=== PATIENT | female | born 1985 ===

== ENCOUNTER 2023-09-24 18:27 | Inpatient (IN) | payer SELFPAY ==
[2023-09-24] MEDS ORDERED: Sodium Chloride 0.9% 10 ML Syringe FLUSH PRN (18:40)
[2023-09-24] MEDS ORDERED: Thiamine 100 MG in Sodium Chloride 0.9% 100 ML IV ONE (18:41)
[2023-09-24] MEDS ORDERED: Sodium Chloride 0.9% 1,000 ML IV ONE (18:41)
[2023-09-24 18:48] LABS: BASOPHILS PERCENT AUTO 0.3 % (0.0-1.0); EOSINOPHILS PERCENT AUTO 1.5 % (1.0-3.0); HEMATOCRIT 41.4 % (37.0-47.0); LYMPHOCYTES PERCENT AUTO 45.9 % (20.5-50.1); MEAN CORPUSCULAR HEMOGLOBIN 29.9 pg (27.0-34.0); MEAN CORPUSCULAR HGB CONC 33.8 g/dL (33.0-35.0); MEAN CORPUSCULAR VOLUME 88.5 fL (80-100); MONOCYTES PERCENT AUTO 6.6 % (2-8); NEUTROPHILS PERCENT AUTO 45.7 % (42.2-75.2); PLATELET COUNT,PLT 283 10^3/uL (150-450); RED BLOOD CELL COUNT 4.68 10^6/uL (4.2-5.4); WHITE BLOOD CELL COUNT,WBC 8.7 10^3/uL (5.0-10.0)
[2023-09-24 18:53] LABS: AMPHETAMINES,URINE NEGATIVE (NEGATIVE); APPEARANCE,URINE CLEAR (CLEAR); BARBITURATES,URINE NEGATIVE (NEGATIVE); BENZODIAZEPINE,URINE NEGATIVE (NEGATIVE); BILIRUBIN,URINE NEGATIVE (NEGATIVE); COLOR,URINE YELLOW (YELLOW); GLUCOSE,URINE NEGATIVE (NEGATIVE); KETONES,URINE NEGATIVE (NEGATIVE); LEUKOCYTE ESTERASE,URINE NEGATIVE (NEGATIVE); MDMA (ECSTASY), URINE NEGATIVE (NEGATIVE); METHADONE,URINE NEGATIVE (NEGATIVE); METHAMPHETAMINES,URINE NEGATIVE (NEGATIVE); NITRITE,URINE NEGATIVE (NEGATIVE); OCCULT BLOOD,URINE TRACE-INTACT (NEGATIVE); OPIATES,URINE NEGATIVE (NEGATIVE); OXYCODONE,URINE NEGATIVE (NEGATIVE); PH,URINE 5.5 (5.0-9.0); PHENCYCLIDINE,URINE NEGATIVE (NEGATIVE); PROTEIN,URINE 30 (NEGATIVE); TCA,URINE NEGATIVE (NEGATIVE); UROBILINOGEN,URINE 0.2 mg/dL (0.2-1.0)
[2023-09-24 19:02] LABS: BACTERIA,URINE MODERATE /HPF (0-FEW/HPF); EPITHELIAL CELLS,URINE MODERATE /HPF (NOT SEEN); MUCUS,URINE FEW /LPF (NOT SEEN); RBC,URINE 0-5 /HPF (0-5)
[2023-09-24 19:05] LABS: PTT,PARTIAL THROMBOPLSTIN TIME 26.8 SEC (22.0-34.0)
[2023-09-24 19:15] LABS: ALBUMIN 4.1 g/dL (3.4-5.0); ANION GAP 14.5 mEq/L (7-13); BILIRUBIN TOTAL 0.4 mg/dL (0.2-1.0); BUN/CREATININE RATIO 14.9 (No establ ref range); CALCIUM 8.3 mg/dL (8.5-10.1); CREATININE 0.67 mg/dL (0.55-1.02); EST CRCL DRUG DOSING (CG) 110.71 mL/min; MAGNESIUM 2.2 mg/dL (1.8-2.4); POTASSIUM,K 3.5 mmol/L (3.5-5.1); PROTEIN TOTAL,TP 8.2 g/dL (6.4-8.2); TSH ULTRASENSITIVE 1.86 uIU/mL (0.36-3.74)
[2023-09-24] MEDS ORDERED: LORazepam 2 MG/ML SDV IV PRN (20:00)
[2023-09-24] MEDS ORDERED: LORazepam 0.5 MG Tab PO PRN (20:00)
[2023-09-24] MEDS ORDERED: MVI, Adult with Vitamin K 10 ML, Folic Acid 1 MG, Thiamine 100 MG in Lactated Ringers 1... IV ONE ×4 (20:00)
[2023-09-24] MEDS ORDERED: Haloperidol Lactate 5 MG/ML SDV IM PRN (20:00)
[2023-09-24] MEDS ORDERED: hydrALAZINE 20 MG/ML SDV IVPUSH PRN (20:04)
[2023-09-24] MEDS ORDERED: Flumazenil 0.1 MG/ML 5 ML MDV IVPUSH PRN (20:11)
[2023-09-24] MEDS ORDERED: HYDROmorphone 0.5 MG/0.5 ML Syringe IVPUSH PRN (20:16)
[2023-09-24] MEDS ORDERED: Sennosides/Docusate Sodium 50-8.6 MG Tab PO PRN (20:16)
[2023-09-24] MEDS ORDERED: Ibuprofen 600 MG Tab PO PRN (20:16)
[2023-09-24] MEDS ORDERED: Ketorolac 30 MG/ML SDV IVPUSH PRN (20:16)
[2023-09-24] MEDS ORDERED: Magnesium Hydroxide 400 MG/5 ML Susp 30 ML Cup PO PRN (20:16)
[2023-09-24] MEDS ORDERED: Naloxone 2 MG/2 ML Syringe IVPUSH PRN (20:16)
[2023-09-24] MEDS ORDERED: Albuterol/Ipratropium 3.0-0.5 MG/3 ML Neb Soln NEB PRN (20:16)
[2023-09-24] MEDS ORDERED: Polyethylene Glycol 3350 Powder 17 GM Packet PO PRN (20:16)
[2023-09-24] MEDS ORDERED: Ondansetron 4 MG/2 ML SDV IVPUSH PRN (20:16)
[2023-09-24] MEDS ORDERED: traMADol 50 MG Tab PO PRN (20:19)
[2023-09-24 20:22] LABS: CORONAVIRUS COVID-19 NAA NEGATIVE (NEGATIVE); INFLUENZA A NAA NEGATIVE (NEGATIVE); INFLUENZA B NAA NEGATIVE (NEGATIVE); RESPIRATORY SYNCYTIAL VIR NAA NEGATIVE (NEGATIVE)
[2023-09-24] MEDS ORDERED: Famotidine 20 MG Tab PO SCH (21:00)
[2023-09-24] MEDS ORDERED: cloNIDine 0.1 MG Tab PO SCH (21:00)
[2023-09-25] MEDS ORDERED: Folic Acid 1 MG Tab PO SCH (21:00)
[2023-09-25] MEDS ORDERED: Multivitamin Tab PO SCH (21:00)
== END 2023-09-24 21:20 | disposition left against medical advice (07) | DRG 894 ==
LOC: DL.ED 18:27 → DL.MS 19:48
PROVIDERS: ADMIT Internal Medicine; ATTEND Internal Medicine
DX: F10.129 Alcohol abuse with intoxication, unspecified (principal); F23 Brief psychotic disorder; F32.9 Major depressive disorder, single episode, unspecified; F43.10 Post-traumatic stress disorder, unspecified; F41.1 Generalized anxiety disorder; Z88.0 Allergy status to penicillin; Z79.899 Other long term (current) drug therapy
CPT/HCPCS: 0241U; 36415; 80053; 80143; 80179; 80305-QW; 80307; 81001; 81025; 83735; 84443; 85025; 85610; 85730; 96365; 99284; 99284-25; J3411; J3490; J7030

== ENCOUNTER 2024-06-05 03:50 | Inpatient (IN) | payer MEDICAID ==
[2024-06-05 04:00] LABS: BASOPHILS PERCENT AUTO 0.2 % (0.0-1.0); EOSINOPHILS PERCENT AUTO 0.7 % (1.0-3.0); HEMATOCRIT 42.3 % (37.0-47.0); HEMOGLOBIN 14.2 g/dL (12.0-16.0); LYMPHOCYTES PERCENT AUTO 40.8 % (20.5-50.1); MEAN CORPUSCULAR HEMOGLOBIN 30.1 pg (27.0-34.0); MEAN CORPUSCULAR HGB CONC 33.6 g/dL (33.0-35.0); MEAN CORPUSCULAR VOLUME 89.6 fL (80-100); MONOCYTES PERCENT AUTO 6.2 % (2-8); NEUTROPHILS PERCENT AUTO 52.1 % (42.2-75.2); PLATELET COUNT,PLT 308 10^3/uL (150-450); RED BLOOD CELL COUNT 4.72 10^6/uL (4.2-5.4); WHITE BLOOD CELL COUNT,WBC 8.9 10^3/uL (5.0-10.0)
[2024-06-05 04:12] LABS: AMPHETAMINES,URINE NEGATIVE (NEGATIVE); BARBITURATES,URINE NEGATIVE (NEGATIVE); BENZODIAZEPINE,URINE NEGATIVE (NEGATIVE); MDMA (ECSTASY), URINE NEGATIVE (NEGATIVE); METHADONE,URINE NEGATIVE (NEGATIVE); METHAMPHETAMINES,URINE NEGATIVE (NEGATIVE); OPIATES,URINE POSITIVE (NEGATIVE); OXYCODONE,URINE NEGATIVE (NEGATIVE); PHENCYCLIDINE,URINE NEGATIVE (NEGATIVE); TCA,URINE NEGATIVE (NEGATIVE)
[2024-06-05] MEDS: Sodium Chloride 0.9% 1,000 ML IV ONE (04:13)
[2024-06-05] MEDS: Sodium Chloride 0.9% 10 ML Syringe FLUSH PRN (04:15)
[2024-06-05] MEDS: LORazepam 2 MG/ML SDV IVPUSH ONE (04:15)
[2024-06-05 04:43] LABS: A/G RATIO 0.8; ALANINE AMINOTRANSFERASE,ALT 61 U/L (14-59); ALBUMIN 3.5 g/dL (3.4-5.0); ALKALINE PHOSPHATASE 131 U/L (46-116); ANION GAP 14.8 mEq/L (7-13); ASPARTATE AMNIOTRANSFERASE,AST 74 U/L (15-37); BILIRUBIN TOTAL 0.3 mg/dL (0.2-1.0); BLOOD UREA NITROGEN,BUN 10 mg/dL (7-18); BUN/CREATININE RATIO 15.6 (No establ ref range); CALCIUM 8.1 mg/dL (8.5-10.1); CARBON DIOXIDE,CO2 26 mmol/L (21-32); CHLORIDE,CL 103 mmol/L (98-107); CREATININE 0.64 mg/dL (0.55-1.02); ESTIMATED GFR 115 mL/min (>=60); GLUCOSE RANDOM 125 mg/dL (70-99); POTASSIUM,K 3.8 mmol/L (3.5-5.1); PROTEIN TOTAL,TP 7.8 g/dL (6.4-8.2); SODIUM,NA 140 mmol/L (136-145)
[2024-06-05 04:44] LABS: ETHANOL BLOOD MEDICAL 419 mg/dL (0)
[2024-06-05] MEDS: PHENobarbital Sodium 65 MG/ML SDV IVPUSH PRN (09:55)
[2024-06-05] MEDS: Carvedilol 6.25 MG Tab PO SCH (09:56)
[2024-06-05] MEDS: Enoxaparin 40 MG/0.4 ML Syringe SUBCUT SCH (09:57)
[2024-06-05] MEDS: Ondansetron 4 MG/2 ML SDV IVPUSH PRN (11:36)
[2024-06-05] MEDS: Ziprasidone Mesylate 20 MG Vial IM PRN (13:23)
[2024-06-05] MEDS ORDERED: Non-Formulary Medication 1 Each (Prazosin [Minpress] 1 MG Cap) PO SCH (21:00)
[2024-06-05] MEDS ORDERED: Flumazenil 0.1 MG/ML 5 ML MDV IVPUSH PRN (21:10)
[2024-06-06] MEDS: LORazepam 2 MG/ML SDV IVPUSH PRN (00:48)
[2024-06-06 06:13] LABS: BASOPHILS PERCENT AUTO 0.3 % (0.0-1.0); EOSINOPHILS PERCENT AUTO 1.2 % (1.0-3.0); HEMATOCRIT 39.5 % (37.0-47.0); HEMOGLOBIN 12.8 g/dL (12.0-16.0); LYMPHOCYTES PERCENT AUTO 25.9 % (20.5-50.1); MEAN CORPUSCULAR HEMOGLOBIN 29.8 pg (27.0-34.0); MEAN CORPUSCULAR HGB CONC 32.4 g/dL (33.0-35.0); MEAN CORPUSCULAR VOLUME 91.9 fL (80-100); MONOCYTES PERCENT AUTO 8.4 % (2-8); NEUTROPHILS PERCENT AUTO 64.2 % (42.2-75.2); PLATELET COUNT,PLT 230 10^3/uL (150-450); WHITE BLOOD CELL COUNT,WBC 7.5 10^3/uL (5.0-10.0)
[2024-06-06 07:25] LABS: A/G RATIO 0.8; ALBUMIN 3.2 g/dL (3.4-5.0); ANION GAP 13.4 mEq/L (7-13); BILIRUBIN TOTAL 1.1 mg/dL (0.2-1.0); BUN/CREATININE RATIO 18.4 (No establ ref range); CALCIUM 8.9 mg/dL (8.5-10.1); CREATININE 0.76 mg/dL (0.55-1.02); EST CRCL DRUG DOSING (CG) 96.64 mL/min; POTASSIUM,K 3.4 mmol/L (3.5-5.1); PROTEIN TOTAL,TP 7.2 g/dL (6.4-8.2)
[2024-06-06] MEDS: oxyCODONE 5 MG Tab PO PRN (13:57)
[2024-06-06] MEDS: MVI, Adult with Vitamin K 10 ML, Folic Acid 1 MG, Thiamine 100 MG in Lactated Ringers 1... IV ONE (15:18)
[2024-06-06] MEDS: DULOXETINE 20 MG PO SCH (16:14)
[2024-06-06] MEDS: Potassium Chloride 10 MEQ Tab.ER PO ONE (17:46)
[2024-06-07 07:59] LABS: ANION GAP 11.9 mEq/L (7-13); CALCIUM 8.7 mg/dL (8.5-10.1); CREATININE 0.7 mg/dL (0.55-1.02); EST CRCL DRUG DOSING (CG) 104.93 mL/min; POTASSIUM,K 3.9 mmol/L (3.5-5.1)
[2024-06-07] MEDS: DULoxetine 30 MG Cap PO SCH (08:42)
[2024-06-07] MEDS: LORazepam 2 MG/ML SDV IVPUSH PRN (10:23)
[2024-06-08 08:07] LABS: ANION GAP 9.4 mEq/L (7-13); CALCIUM 9.1 mg/dL (8.5-10.1); CREATININE 0.8 mg/dL (0.55-1.02); EST CRCL DRUG DOSING (CG) 91.81 mL/min; POTASSIUM,K 4.4 mmol/L (3.5-5.1)
[2024-06-08] MEDS: MVI, Adult with Vitamin K 10 ML, Folic Acid 1 MG, Thiamine 100 MG in Lactated Ringers 1... IV SCH (09:29)
== END 2024-06-08 13:45 | disposition left against medical advice (07) | DRG 894 ==
LOC: DL.ED 03:50 → DL.MS 06:17
PROVIDERS: ADMIT Internal Medicine; ATTEND Internal Medicine
DX: F10.129 Alcohol abuse with intoxication, unspecified (principal); I10 Essential (primary) hypertension; F41.9 Anxiety disorder, unspecified; Y90.8 Blood alcohol level of 240 mg/100 ml or more; F17.210 Nicotine dependence, cigarettes, uncomplicated; Z88.0 Allergy status to penicillin; Z79.899 Other long term (current) drug therapy; Z87.81 Personal history of (healed) traumatic fracture; Z98.890 Other specified postprocedural states
CPT/HCPCS: 36415; 80053; 80305; 80307; 85025; 96361; 96374; 99284; 99285; J2060; J7030; 80048; 97161-GP; 97165-GO; 99223; 99233; 99238; A9270-GY; J1650; J2405; J2560; J3411; J3486; J3490; J7120